=== PATIENT | female | born 1990 | race Caucasian/White ===

== ENCOUNTER 2020-01-11 15:07 | Emergency (ER) | payer MEDICAID, SELFPAY ==
[2020-01-11 15:20] VITALS: BP 100/66; PULSE 102; RESP 18; TEMP 36.8; O2SAT 100; BMI 25.0
--- NOTE | 2020-01-11 15:29 | US_ITS ---
WS: [id number] US soft tissue/extremity 03460 REASON FOR EXAM: abd wall FINDINGS: In the area of the mid abdominal wall a red area is present there is evidence of fluid seen in the subcutaneous area but no definite abscess is seen. The fluid involves the subcutaneous area. There is a fistula area extends down into the soft tissue. US/US soft tissue/extremity 01877 IMPRESSION: Soft tissue deformity along the subcutaneous area with a fistula tract extends into the muscularis area extends down 1.07 cm.
--- NOTE | 2020-01-11 15:30 | W.ED.SKABFB ---
HPI - Skin/Abscess/Foreign Bdy General: Chief complaint: Skin/Abscess/Foreign Body Stated complaint: bite Time Seen by Provider: 01/11/20 15:16 Source: patient Mode of arrival: ambulatory Limitations: no limitations History of Present Illness: HPI narrative: Patient comes in today with abdominal pain secondary to draining wound from an insect bite to the right lower abdomen. Patient also has 2 other areas 1 to her back on the left flank area and one to her right arm. Patient appears well. Patient appears in moderate pain. Patient believes that it is caused by a brown recluse. Review of Systems General: Reports: 10 or more systems reviewed and unremarkable except in HPI and below Skin/Breast: Reports: redness and new lesion PFS ED PFSH: Social History (Updated 01/10/20 @ 11:41 by Zoya Baez LPN) Smoking and tobacco status: current every day smoker Alcohol intake: never Physical Exam Const: COMMON NORMALS: no apparent distress and oriented x3 GENERAL APPEARANCE: cooperative HENMT: COMMON NORMALS: normocephalic, TM's normal bilaterally and external nose normal HEAD & SCALP: normal to inspection and normocephalic NOSE: external nose normal TYMPANIC MEMBRANE: TM's normal bilaterally MOUTH: oral and palatal mucosa normal THROAT: posterior oropharynx normal Eye: GENERAL EYE: normal appearance of both eyes Neck/C-Spine: COMMON NORMALS: full ROM Lymph: LYMPHATIC: no lymphadenopathy noted Chest: COMMONS NORMALS: inspection of chest normal Resp: COMMON NORMALS: normal respiratory effort EFFORT & INSPECTION: Yes able to speak in complete sentences Cardio: COMMON NORMALS: regular rate and regular rhythm RATE: regular rate RHYTHM: regular rhythm GI: COMMON NORMALS: non-tender : COMMON NORMALS: Yes no CVA tenderness BLADDER/KIDNEY EXAM: Yes no CVA tenderness Back/Pelvis: COMMON NORMALS: no CVA tenderness and thoracic and lumbar spine normal to inspection Extremity: COMMON NORMALS: normal to inspection Neuro: COMMON NORMALS: oriented x3 and moves all extremities Psych: COMMON NORMALS: mental status grossly normal and cooperative Skin: NARRATIVE SKIN EXAM: Patient has an area of redness to the right lower abdomen approximately 1 x 3 cm with a central opening draining purulent drainage. Wound is tender to touch. Patient also has a indurated area approximately 3 centimeters circular to the left lower flank. Patient also has a similar lesion to the right forearm that is also red and indurated approximately 2 cm. Course Vital Signs: Vital signs: Vital Signs Temperature 98.2 F 01/11/20 15:20 Pulse Rate 78 01/11/20 16:10 Respiratory Rate 16 01/11/20 16:10 Blood Pressure 128/74 01/11/20 16:10 Pulse Oximetry 98 01/11/20 16:10 MDM - Skin/Abscess/Foreign Bdy MDM Narrative: Medical decision making narrative: Patient came in due to increased pain and discomfort to the right lower abdomen where she has a draining wound. Patient was seen yesterday and started on Sulfatrim but reports increased pain since yesterday. On exam I note a draining purulent wound from the right lower abdomen. Abdomen otherwise is soft no rebound tenderness is noted. Skin is warm and dry and vital signs are normal. Differential diagnosis includes abscess, infected insect bite, sepsis. CBC was normal BMP was normal. Ultrasound of the abdominal wall noted draining wound, with opening to the skin. Reviewed exam with patient recommended adding clindamycin to regimen with antibiotic of Sulfatrim. Encourage plenty of fluids and plenty of rest. Avoid poking and prodding at wound sites. Patient reports understanding and agreed with plan. Lab Data: Labs: Lab Results 01/11/20 01/11/20 Range/Units 15:39 15:39 WBC 8.0 (4.0-10.0) 10^3/ uL RBC 4.27 (4.1-5.3) 10^6/u L Hgb 12.2 (11.5-15.3) g/dL Hct 38.3 (37.0-47.0) % MCV 89.7 (81-99) fL MCH 28.6 (28.0-34.0) pg MCHC 31.9 (30.0-36.0) g/dL RDW 13.1 (12.1-15.1) % Plt Count 185 (130-400) 10^3/c mm MPV 11.0 H (7.4-10.4) fL Neut % (Auto) 68.5 % Lymph % (Auto) 21.7 % Edmonson % (Auto) 8.5 % Eos % (Auto) 0.9 % Baso % (Auto) 0.2 % Neut # (Auto) 5.5 (1.8-7.7) 10^3/u L Lymph # (Auto) 1.7 (0.8-4.8) 10^3/u L [place]monson # (Auto) 0.7 (0.2-0.9) 10^3/u L Eos # (Auto) 0.1 (0.0-0.8) 10^3/u L Baso # (Auto) 0.0 (0.0-0.1) 10^3/u L Nucleated RBC % (a uto) 0 % Nucleated RBCs # 0.0 /100WBC Sodium 136 (136-145) mmol/L Potassium 4.0 (3.5-5.1) mmol/L Chloride 101 (98-107) mmol/L Carbon Dioxide 24 (22-29) mmol/L Anion Gap 15.0 (5-19) BUN 6 (6-20) mg/dL Creatinine 0.7 (0.5-0.9) mg/dL GFR Calculation 100.4 (90-130) mL/min Glucose 90 (65-115) mg/dL Calculated Osmolal ity 277 L (285-295) mOsm/k g Calcium 9.6 (8.5-10.5) mg/dL Discharge Plan Discharge Patient Disposition: Home, Self-Care Clinical Impression: Infected insect bite Qualifiers: Encounter type: initial encounter Qualified Code(s): W57.XXXA - Bitten or stung by nonvenomous insect and other nonvenomous arthropods, initial encounter Abscess of skin or subcutaneous tissue Qualifiers: Site of cutaneous abscess: trunk Site of cutaneous abscess of trunk: abdominal wall Qualified Code(s): L02.211 - Cutaneous abscess of abdominal wall Condition: Stable Prescriptions: New clindamycin HCl 150 mg capsule 150 mg PO Q8H 7 Days Qty: 21 RF: 0 hydrocodone-acetaminophen 5-325 mg tablet 1 tab PO Q6H PRN (Reason: pain (scale score 7-10)) Qty: 10 RF: 0 No Action sulfamethoxazole-trimethoprim [Bactrim DS] 800-160 mg tablet 1 tab PO BID 7 Days Qty: 14 RF: 0 Discharge Orders: Discharge Order (Routine); Ordered 01/11/20 Ordered By: Dandre Singh Discharge Diet: Usual diet Discharge Activity: Increase activity as tolerated Patient Instructions: Abscess (ED) Activity Restrictions/Additional Instructions: Take clindamycin with the sulfamethoxazole?trimethoprim until all antibiotics are completed. Use warm moist packs to the area to promote continued drainage of wound. Drink plenty of water with medication. Use acetaminophen and ibuprofen to control pain. Use hydrocodone for severe pain. Hydrocodone can impair judgment and should not be used while driving or when you need to be wide-awake. Follow-up with primary care in 1 week. Return to the ER for high fever or worsening symptoms. Discharge Date/Time: 01/11/20 16:18 Coding Level of Care Code ED Bank Operations Officer for [employer] Fwd Exam Comprehensive
[2020-01-11] MEDS: HYDROcodone-acetaminophen 7.5-325 mg Tablet 1 TAB PO (15:47)
[2020-01-11 15:48] LABS: Basophils % 0.2 %; Eosinophils # 0.1 10^3/uL (0.0-0.8); Eosinophils % 0.9 %; Hematocrit 38.3 % (37.0-47.0); Hemoglobin 12.2 g/dL (11.5-15.3); Lymphocytes # 1.7 10^3/uL (0.8-4.8); Lymphocytes % 21.7 %; Mean Corpuscular HGB Conc 31.9 g/dL (30.0-36.0); Mean Corpuscular Hemoglobin 28.6 pg (28.0-34.0); Mean Corpuscular Volume 89.7 fL (81-99); Monocytes # 0.7 10^3/uL (0.2-0.9); Monocytes % 8.5 %; Neutrophils # 5.5 10^3/uL (1.8-7.7); Neutrophils % 68.5 %; Nucleated Red Blood Cells % 0 %; Platelet Count 185 10^3/cmm (130-400); Red Blood Count 4.27 10^6/uL (4.1-5.3); Red Cell Distribution Width 13.1 % (12.1-15.1)
[2020-01-11] MEDS: clindamycin 600 MG/50 ML PREMIX 100 MG IV (15:48)
[2020-01-11 16:04] LABS: Blood Urea Nitrogen 6 mg/dL (6-20); Calcium 9.6 mg/dL (8.5-10.5); Carbon Dioxide 24 mmol/L (22-29); Chloride 101 mmol/L (98-107); Glomerular Filtration Rate 100.4 mL/min (90-130); Glucose 90 mg/dL (65-115); Osmolality Calculated 277 mOsm/kg (285-295); Sodium 136 mmol/L (136-145)
[2020-01-11 16:10] VITALS: BP 128/74; PULSE 78; RESP 16; O2SAT 98
== END 2020-01-11 16:18 | disposition home or self-care (01) ==
PROVIDERS: Emergency Provider Nurse Practitioner Family
DX: L02.211 Cutaneous abscess of abdominal wall (principal); S30.861A Insect bite (nonvenomous) of abdominal wall, initial encounter; L08.9 Local infection of the skin and subcutaneous tissue, unspecified; W57.XXXA Bitten or stung by nonvenomous insect and other nonvenomous arthropods, initial encounter; F17.210 Nicotine dependence, cigarettes, uncomplicated
CPT/HCPCS: 12345; 36415; 76882; 80048; 85025; 87040; 87070; 87077; 87186; 87205; 96365; 99282; 99283; J3490

== ENCOUNTER 2023-08-15 17:18 | Emergency (ER) | payer BC, SELFPAY ==
[2023-08-15 17:23] VITALS: BP 111/73; PULSE 120; RESP 16; TEMP 36.7; O2SAT 97; BMI 24.2
--- NOTE | 2023-08-15 17:27 | W.ED.UPPEXIN ---
HPI - Extremity Injury (Upper) General: Chief Complaint: Extremity Injury, Upper Stated Complaint: left arm pain from fall Time Seen by Provider: 08/15/23 17:27 Source: patient Mode of arrival: ambulatory Limitations: no limitations History of Present Illness: Patient is a 32-year-old female presents to ED today for evaluation of pain to her left arm following a fall yesterday. Patient states she is clumsy and tripped and fell yesterday and landed onto her left arm. She has had some mild pain around the left wrist but main concern is pain to her left elbow. She denies any other injuries during the fall. complaint: injury to: left, elbow and wrist Onset (ago): day(s) (yesterday) Other Extremity Injury: Left: wrist and elbow Other injuries: none Place: home Severity: moderate Relieving factors: immobilization Exacerbating factors: movement of extremity Context: fall Associated symptoms: Reports no associated symptoms; Denies weakness in extremities Review of Systems Musc: Reports: joint pain; Denies: extremity pain, extremity swelling, joint swelling, joint redness or joint warmth Neuro: Denies: numbness in extremities, weakness in extremities or sensory changes [facility] ED PFSH: Social History Smoking and tobacco/nicotine status: current every day tobacco/nicotine user Alcohol intake: never Substance/Drug Use: never Current gender identity: Female Physical Exam Const: COMMON NORMALS: no acute distress, patient oriented x3, no limitations, alert and well nourished Extremity: COMMON NORMALS: normal to inspection, capillary refill normal, no joint enlargement and no clubbing, cyanosis or edema GENERAL: Yes normal exam except as noted LEFT UPPER EXTREMITY: Yes elbow joint Left elbow: Yes inspection (normal gross inspection), Yes ROM (pain with full flexion and full extension; no pain in between) and Yes neurovascular exam (normal) and Yes wrist Left wrist: Yes inspection (normal), Yes ROM (full ROM but states this is uncomfortable) and Yes neurovascular exam (normal) Neuro: COMMON NORMALS: patient oriented x3, moves all extremities, no focal motor deficits and no sensory deficits noted SENSORIUM/ORIENTATION: Yes alert Course Vital Signs: Vital signs: Vital Signs Temperature 98.1 F 08/15/23 17:23 Pulse Rate 120 H 08/15/23 17:23 Respiratory Rate 16 08/15/23 17:23 Blood Pressure 111/73 08/15/23 17:23 Pulse Oximetry 100 08/15/23 17:35 Oxygen Delivery Me thod Room Air 08/15/23 17:35 MDM - Extremity Injury (Upper) Medical Decision Making XR personal interpretation showing a nondisplaced radial head fracture. She will be placed in a posterior elbow splint and will follow-up with orthopedics. Medical Records I reviewed the patient's medical records. XR interpretation done by ED provider, pending radiology final review Discharge Plan Discharge Patient Disposition: Home Clinical Impression: Closed fracture of radial head Qualifiers: Encounter type: initial encounter Fracture alignment: nondisplaced Laterality: left Qualified Code(s): S52.125A - Nondisplaced fracture of head of left radius, initial encounter for closed fracture Condition: Stable Prescriptions: No Action sulfamethoxazole-trimethoprim [Bactrim DS] 800-160 mg tablet 1 tab PO BID 7 Days Qty: 14 0RF hydrocodone-acetaminophen 5-325 mg tablet 1 tab PO Q6H PRN (Reason: pain (scale score 7-10)) Qty: 10 0RF Discharge Orders: Discharge ED (Routine); Ordered 08/15/23 Ordered By: Tania Ibrahim Patient Instructions: Elbow Fracture (DC) Activity Restrictions/Additional Instructions: As we discussed case management will reach out to you this week to help set you up with your follow-up orthopedic appointment. You need to stay in your splint until this appointment. Coding Level of Care Code ED Field Recorder for [facility] Bangura
--- NOTE | 2023-08-15 17:33 | XRR_ITS ---
PROCEDURE INFORMATION: Exam: XR Left Elbow Exam date and time: 08/15/2023 5:45 PM Age: 32 years old Clinical indication: Injury or trauma; Fall; Blunt trauma (contusions or hematomas); Elbow; Left TECHNIQUE: Imaging protocol: Radiologic exam of the left elbow. Views: 3 or more views. COMPARISON: CR (UP EX, ) 08/15/2023 5:45 PM FINDINGS: Bones/joints: Subtle irregularity on the lateral aspect of the radial head, best seen on oblique and AP images. Soft tissues: Subtle posterior fat pad. XR/XR elbow LT min 3V* [id number] IMPRESSION: Subtle lucency of the radial head with an associated posterior fat pad sign. Findings suspicious for a nondisplaced fracture of the radial head.
--- NOTE | 2023-08-15 17:33 | XRR_ITS ---
PROCEDURE INFORMATION: Exam: XR Left Wrist Exam date and time: 08/15/2023 5:45 PM Age: 32 years old Clinical indication: Injury or trauma; Fall; Blunt trauma (contusions or hematomas); Wrist; Left TECHNIQUE: Imaging protocol: Radiologic exam of the left wrist. Views: 3 or more views. COMPARISON: CR ( EX, ) 08/15/2023 5:45 PM FINDINGS: Bones/joints: Normal. Soft tissues: Normal. XR/XR wrist LT min 3V* [id number] IMPRESSION: No acute findings.
[2023-08-15 17:35] VITALS: O2SAT 100
[2023-08-15 18:41] VITALS: O2SAT 100
--- NOTE | 2023-08-17 08:11 | DCPLANNER ---
Referral was sent to ortho on 08/17/23 at 0811. Clinic to contact patient.
== END 2023-08-15 18:43 | disposition home or self-care (01) ==
PROVIDERS: Emergency Provider Physician Assistant
DX: S52.125A Nondisplaced fracture of head of left radius, initial encounter for closed fracture (principal); F17.200 Nicotine dependence, unspecified, uncomplicated; W01.0XXA Fall on same level from slipping, tripping and stumbling without subsequent striking against object, initial encounter
CPT/HCPCS: 29125; 73080; 73110; 99283; A4590